=== PATIENT | female | born 1950 | race Caucasian/White ===

== ENCOUNTER 2021-05-27 18:26 | Emergency (ER) | payer MEDICARE, OTHER ==
[~2021-05-27] VITALS: Ht 162.6 cm; Wt 77.6 kg
[2021-05-27] MEDS ORDERED: VENTOLIN HFA18 GM INH (22:21)
[2021-05-27] MEDS ORDERED: ESOMEPRAZOLE MA40 MG PO (22:21)
[2021-05-27] MEDS ORDERED: DULOXETINE HCL60 MG PO (22:21)
== END 2021-05-27 23:30 | disposition home or self-care (01) ==
LOC: ED 18:26
DX: M79.661 Pain in right lower leg (principal); R60.0 Localized edema; K21.9 Gastro-esophageal reflux disease without esophagitis; Z79.899 Other long term (current) drug therapy
CPT/HCPCS: 93971; 99283-25

== ENCOUNTER 2024-01-25 06:26 | Day surgery (SDC) | payer MEDICARE, OTHER ==
[~2024-01-25] VITALS: Ht 162.6 cm; Wt 89.4 kg
[~2024-01-25 06:26] MED LIST: DULOXETINE HCL60 MG PO; ESCITALOPRAM OX20 MG PO; ESOMEPRAZOLE MA40 MG PO; MIDAZOLAM HCL 5 MG/5 ML VIAL IV PRN; VENTOLIN HFA18 GM INH; WELLBUTRIN XL150 MG PO; fentaNYL citrate 100 MCG/2 ML VIAL IV PRN
[2024-01-25] MEDS ORDERED: MIDAZOLAM HCL 5 MG/5 ML VIAL ONE (06:39)
[2024-01-25] MEDS ORDERED: fentaNYL citrate 100 MCG/2 ML VIAL ONE (06:41)
[2024-01-25 06:44] VITALS: BP 133/81
[2024-01-25] MEDS ORDERED: FLUOXETINE HCL20 MG PO (06:46)
[2024-01-25] MEDS ORDERED: LACTATED RINGER'S 1,000 ML IV SCH (07:00)
[2024-01-25] MEDS ORDERED: LIDOCAINE HCL 1% 5 ML SDV INJ ONE (07:00)
[2024-01-25] MEDS ORDERED: IBLOOD GLUCOSE TEST STRIP 1 EA TEST VI PRN (07:00)
--- NOTE | 2024-01-25 07:28 | NUR ---
VISITED DURING SPIRITUAL CARE ROUNDS. PT EXHIBITED LOW ANXIETY, CONFIDENCE IN CARE. PROVIDED SUPPORTIVE PRESENCE, HOSPITALITY, PRAYER. PT EXPRESSED GRATITUDE.
--- NOTE | 2024-01-25 08:01 | NUR ---
01/25/24 0801 [place] 0754- PT ARRIVES TO PACU REACTIVE TO VOICE. PT UPDATED THAT HER PROCEDURE IS COMPLETE. PT REPORTS NO PAIN OR NAUSEA. RESP EVEN AND UNLABORED. OXYGEN SAT MID TO HIGH 90'S ON 2L VIA CO2 NC.
[2024-01-25 08:26] VITALS: BP 130/79
--- NOTE | 2024-01-25 09:28 | OR ---
[facility] [address], [place] [address] Signed DATE OF OPERATION: 01/25/2024 SURGEON: Austin Crow MD PREOPERATIVE DIAGNOSES: 1. Chronic cough plus or minus asthma. 2. Acid reflux. 3. Esophageal dysphagia to solids. 4. Decreased primary and secondary contractions with some mild tertiary contractions. POSTOPERATIVE DIAGNOSES: 1. Moderate sized hiatal hernia (33-28 cm). 2. GE junction at 28 cm. PROCEDURE: EGD with CLOtest and biopsies of the duodenum, pyloric bulb, antrum, and midesophagus. ESTIMATED BLOOD LOSS: None. INDICATIONS: Yesica is a 73-year-old female, asked to see me for followup upper endoscopy. I met her in 2005 at the age of 55. She had heartburn at that time, particularly after eating. She said it was worse when she would lay down. There is a question of asthma associated with chronic cough. She always describes esophageal dysphagia mainly to solid foods. She has been on Nexium once a day and increased it to twice a day. The upper endoscopy in 2005 revealed tiny hiatal hernia but a negative CLOtest. She did well with Versed and fentanyl. In 2013, the barium swallow did not reveal any stricture or hiatal hernia. She had some mild dysmotility with her primary and secondary waves. She seemed to have a little reflux when lying supine. She feels like her symptoms are getting worse. She had a repeat H pylori back in 2020 and that was negative. She describes having COVID in 2021. Her primary care provider asked to come see me with respect to the above. We repeated the barium swallow and she now has a moderate sized hiatal hernia with some mild stasis in the mid to distal esophagus. She has some decreased primary and secondary contractions associated with tertiary contractions. In the office, I gave Yesica a pamphlet on upper endoscopy. We had reviewed the nature of the test. There is risk including, but not limited to gas bloating, crampy abdominal pain, bleeding, perforation requiring surgery, and missed diagnosis. We also reviewed the need for IV conscious sedation. She had expressed understanding and wished to proceed. Electronically Signed By: AUSTIN CROW MD 01/25/24 0928 PATIENT NAME: TEJINDER BUI OPERATIVE REPORT DATE OF : 54 REPORT #: [id number] PHYSICIAN: AUSTIN CROW MD PCP: YVETTE PHAN DO REPORT IS CONFIDENTIAL AND NOT TO BE RELEASED WITHOUT AUTHORIZATION [facility] [address], [place] [address] Signed PROCEDURE IN DETAIL: Yesica was taken into our endoscopy suite and placed in the supine semi-recumbent position. The posterior oropharynx was anesthetized with lidocaine spray. A bite block was utilized for the case. The adult gastroscope was introduced and advanced under direct visualization of the camera without difficulty. Her duodenum and pyloric channel were unremarkable. We went ahead and took biopsies out of the duodenum, pyloric channel and antrum for pathologic review. In addition, biopsy came out of the antrum for CLOtest. There were no ulcerations. Upon retroflexion of the scope, we can now see she has a moderate sized hiatal hernia measuring from 33 cm back to about 28 cm. Inside the hiatal hernia was unremarkable. There were no gastric or esophageal varices. No strictures, but she does have some angulation coming from the distal esophagus through the GE junction. There was no Restrepo's mucosa. There was no distal esophagitis. Very minimal if any disruption to the Z-line. We went ahead and took a biopsy of the midesophagus for pathologic review. Otherwise, the middle and upper esophagus were unremarkable. Her vocal cords and arytenoids were unremarkable. After this, the gas was suctioned out and the gastroscope removed. Yesica tolerated the procedure quite well. RECOMMENDATIONS: I will see Yesica back in my office in 7 to 14 days to review her results. Once again she might consider seeing one of our Gastroenterology colleagues for esophageal manometry and 24-hour pH testing. Based on her current findings, she might consider having this surgically repaired. Austin Crow MD [facility] /[id number] cc: DO Austin Weller MD Copies: YVETTE PHAN DO Electronically Signed By: AUSTIN CROW MD 01/25/24 0928 PATIENT NAME: TEJINDER BUI OPERATIVE REPORT DATE OF : 54 REPORT #: [id number] PHYSICIAN: AUSTIN CROW MD PCP: YVETTE PHAN DO REPORT IS CONFIDENTIAL AND NOT TO BE RELEASED WITHOUT AUTHORIZATION [address] [address] Signed AUSTIN CROW MD ~ Electronically Signed By: AUSTIN CROW MD 01/25/24 0928 PATIENT NAME: TEJINDER BUI OPERATIVE REPORT DATE OF : 54 REPORT #: [id number] PHYSICIAN: AUSTIN CROW MD PCP: YVETTE PHAN DO REPORT IS CONFIDENTIAL AND NOT TO BE RELEASED WITHOUT AUTHORIZATION
--- NOTE | 2024-01-27 11:28 | PATH ---
[facility] [address] [facility] [place], [place] [address] Signed SPECIMEN(S): A DUODENAL BIOPSY SPECIMEN(S): B PYLORIC BULB SPECIMEN(S): C ANTRUM BIOPSY SPECIMEN(S): D MID ESOPHAGUS BIOPSY SPECIMEN SOURCE: A. DUODENAL BIOPSY B. PYLORIC BULB C. ANTRUM BIOPSY D. MID ESOPHAGUS BIOPSY CLINICAL HISTORY: GERD, esophageal dysphagia FINAL PATHOLOGIC DIAGNOSIS: A. Duodenum, biopsy: - Unremarkable duodenal mucosa, negative for active inflammation or significant villous blunting. B. Pyloric bulb, biopsy: - Benign pyloric mucosa with mild chronic inflammation, negative for active inflammation. C. Antrum, biopsy: - Mild chronic gastritis with focal inflammatory activity, no H. pylori bacteria are detected by HE stain. See comment. D. Mid esophagus, biopsy: - Benign squamous esophageal mucosa, negative for esophagitis or increased eosinophils. COMMENT: Immunohistochemical stain for H. pylori will be performed on C1 and reported by addendum. AMB MICROSCOPIC EXAMINATION: Histologic sections of all submitted blocks are examined by light microscopy. These findings, together with the gross examination, support the pathologic diagnosis. GROSS DESCRIPTION: A. The specimen, labeled and designated "Dagoberto duodenum biopsy," is received in formalin and consists of one sainz soft tissue fragment, 0.3 cm. Entirely PATIENT NAME: TEJINDER BUI PATHOLOGY DATE OF : 54 REPORT #: [id number] PHYSICIAN: [facility] PCP: YVETTE PHAN DO REPORT IS CONFIDENTIAL AND NOT TO BE RELEASED WITHOUT AUTHORIZATION [facility] [address] [facility] [place] [address] Signed submitted in (A1). B. The specimen, labeled and designated "Jobes, pyloric bulb biopsy," is received in formalin and consists of one sainz soft tissue fragment, 0.2 cm. Entirely submitted in (B1). C. The specimen, labeled and designated "Jobes, antrum biopsy," is received in formalin and consists of one sainz soft tissue fragment, 0.2 cm. Entirely submitted in (C1). D. The specimen, labeled and designated "Jobes, mid esophagus biopsy," is received in formalin and consists of one sainz soft tissue fragment, 0.3 cm. Entirely submitted in (D1). JS (under the direct supervision of a pathologist) The Gross Description was prepared using a voice recognition system. The report was reviewed for accuracy; however, sound-alike word errors, addition and/or deletions may occur. If there is any question about this report, please contact Client Services. ADDITIONAL NOTES: Immunohistochemical and/or in situ hybridization studies if performed in this case included appropriate positive controls that reacted as expected. This test was developed and its performance characteristics determined by [facility]. It has not been cleared or approved by the U.S. Food and Drug Administration. The FDA has determined that such clearance or approval is not necessary. This test is used for clinical purposes. It should not be regarded as investigational or for research. [facility] is certified under the Clinical Laboratory Improvement Amendments of 1988 (CLIA) as qualified to perform high complexity clinical laboratory testing. PERFORMING LABORATORY: Technical component was performed by [facility], [address] [place] [id number] (CLIA# [id number]). Professional interpretation was performed by [facility] [address] [id number] Diagnostician: Camelia Vivas MD Pathologist Electronically Signed 01/27/2024 Copies: PATIENT NAME: TEJINDER BUI PATHOLOGY DATE OF : 54 REPORT #: [id number] PHYSICIAN: [facility] PCP: YVETTE PHAN DO REPORT IS CONFIDENTIAL AND NOT TO BE RELEASED WITHOUT AUTHORIZATION [address] [place], [place] [address] Signed ~ PATIENT NAME: TEJINDER BUI PATHOLOGY DATE OF : 54 REPORT #: [id number] PHYSICIAN: [facility] PATH[facility] PCP: YVETTE PHAN DO REPORT IS CONFIDENTIAL AND NOT TO BE RELEASED WITHOUT AUTHORIZATION
== END 2024-01-25 08:34 | disposition home or self-care (01) ==
LOC: OPS 06:26 → DS 06:26 → OPS 07:30
PROVIDERS: ATTEND Colon & Rectal Surgery
PROC: 0DB78ZX Excision of Stomach, Pylorus, Via Natural or Artificial Opening Endoscopic, Diagnostic (ICD-10-PCS; 2024-01-25)
PROC: 0DB28ZX Excision of Middle Esophagus, Via Natural or Artificial Opening Endoscopic, Diagnostic (ICD-10-PCS; 2024-01-25)
PROC: 0DB98ZX Excision of Duodenum, Via Natural or Artificial Opening Endoscopic, Diagnostic (ICD-10-PCS; principal; 2024-01-25 07:30)
DX: K29.50 Unspecified chronic gastritis without bleeding (principal); K44.9 Diaphragmatic hernia without obstruction or gangrene; F32.9 Major depressive disorder, single episode, unspecified; K21.9 Gastro-esophageal reflux disease without esophagitis; R05.3 Chronic cough; E66.9 Obesity, unspecified; Z68.33 Body mass index [BMI] 33.0-33.9, adult; Z79.899 Other long term (current) drug therapy; Z86.16 Personal history of COVID-19
CPT/HCPCS: 36415; 87077; 99153; G0500; J2250; J3010